=== PATIENT | male | born 1970 | race Caucasian/White ===

== ENCOUNTER 2017-01-05 05:07 | Day surgery (SDC) | payer BC ==
[2016-12-24 12:50] VITALS: BMI 29.0
--- NOTE | 2017-01-05 09:36 | HP ---
Satellite [facility] - Chief Complaint Chief Complaint: left elbow pain/numbess - Past Medical History Allergies/Adverse Reactions: Allergies Allergy/AdvReac Type Severity Reaction Status Date / Time No Known Allergies Allergy Verified 08/17/13 09:29 - Current Medications Current Medications: Home Medications Medication Instructions Recorded Biotin [Hard Nails] 2,500 mcg PO DAILY 12/24/16 Cholecalciferol (Vitamin D3) 1,000 unit PO DAILY 12/24/16 [Vitamin D3 -] Cyclobenzaprine HCl [Flexeril -] 5 mg PO HS 12/24/16 Esomeprazole Magnesium [Nexium 40 mg PO DAILY PRN 12/24/16 24Hr] Trazodone HCl [Desyrel -] 75 mg PO HS 12/24/16 Hydrocodone/Acetaminophen [Evangeline 1 each PO Q6H PRN #40 tablet MDD 4 01/05/17 5-325 Tablet] Satellite Physical Exam - Physical Examination General Appearance: Well Nourished, Well Developed, Alert & Oriented x3 ENT: Clear Lung: Normal air movement Heart: Regular rate & rhythm Extremities: Other (left elbow- + ttp, + tinels emg + ulna neuropathy) Neurological: Intact, Alert, Oriented Satellite Impression/Plan - Impression/Plan Impression: 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
[2017-01-05] MEDS ORDERED: PROPOFOL 20 ML ONE ×2 (10:31→12:21)
[2017-01-05] MEDS ORDERED: MIDAZOLAM HCL 2 MG/2 ML SINGLE DOSE VIAL ONE (10:32)
[2017-01-05] MEDS ORDERED: ceFAZolin SODIUM 1 GM VIAL ONE (11:05)
[2017-01-05] MEDS ORDERED: DEXAMETHASONE SOD PHOSPHATE 4 MG/1 ML VIAL ONE (11:05)
[2017-01-05] MEDS ORDERED: ceFAZolin SODIUM 1 GM VIAL IVPB ONE (11:07)
[2017-01-05] MEDS ORDERED: BUPIVACAINE HCL/PF 0.5% (5MG/ML) 10 ML VIAL IJ ONE (11:16)
--- NOTE | 2017-01-05 12:57 | OP ---
Operative Note - Note: Operative Date: 01/05/17 ([facility]) Pre-Operative Diagnosis: left elbow ulna neuropathy Operation: left revision ulna nerve transposition (submuscular), neurolysis Post-Operative Diagnosis: Same as Pre-op Surgeon: Khai Jaramillo Javascript Developer: Adrian Pike Anesthesiologist/DEPLOYMENT ENGINEER: Yoel Watt Anesthesia: General, Local Estimated Blood Loss (mls): 0 (tourniquet) Operative Report Dictated: Yes
[2017-01-05] MEDS ORDERED: oxyCODONE HCL 5 MG TABLET PO PRN (13:11)
[2017-01-05] MEDS ORDERED: ONDANSETRON 4 MG/2 ML VIAL IVPUSH PRN (13:11)
--- NOTE | 2017-01-05 13:11 | OP ---
Operative Note - Note: Operative Date: 01/05/17 Pre-Operative Diagnosis: left elbow recurrent ulnar nerve neuropathy Operation: left elbow submuscular ulnar nerve transposition, neurolysis, excision of scar tissue Findings: scar tissue Post-Operative Diagnosis: Same as Pre-op Surgeon: Khai Jaramillo Anesthesiologist/MODERN LANGUAGES PROFESSOR: Yoel Watt Anesthesia: General, Local Specimens Removed: scar tissue Estimated Blood Loss (mls): 0 Blood Volume Replaced (mls): 0 Fluid Volume Replaced (mls): 1,100 Operative Report Dictated: Yes
[2017-01-05] MEDS ORDERED: LACTATED RINGERS SOLUTION 1,000 ML IV SCH (13:15)
[2017-01-05] MEDS ORDERED: oxyCODONE HCL 5 MG TABLET ONE ×2 (14:01→15:02)
--- NOTE | 2017-01-05 14:21 | OP ---
DATE OF OPERATION: 01/05/2017 PREOPERATIVE DIAGNOSIS: Status post left elbow subcutaneous ulnar nerve transposition with recurrent ulnar neuropathy and formation of scar tissue. POSTOPERATIVE DIAGNOSIS: Status post left elbow subcutaneous ulnar nerve transposition with recurrent ulnar neuropathy and formation of scar tissue. PROCEDURE: Left elbow submuscular ulnar nerve transposition and neurolysis/excision of scar tissue. SURGEON: Cm Andrews MD PHYSIOTHERAPIST'S ASSISTANT: None. ANESTHESIOLOGIST: Yoel Watt MD ANESTHESIA: LMA anesthesia with local injection of 20 mL 0.5% Marcaine, 1% lidocaine mixed. DRAINS: None. COMPLICATIONS: None. SPECIMENS: Scar tissue, left elbow. BLOOD LOSS: None. BLOOD GIVEN: None. FLUID REPLACEMENT: 1000 mL. INDICATIONS: This patient is a 46-year-old male who had a left elbow subcutaneous ulnar nerve transposition and has recurrent ulnar neuropathy. After extensive preoperative discussions about the potential risks, complications, alternatives, benefits of surgical versus nonsurgical treatments, the patient had elected to undergo surgery. The patient understands that he may not get complete relief or even any relief of his symptoms, including a continuation of the numbness in the ulnar nerve distribution. He also understands that the numbness in the posterior aspect of the left proximal posterior forearm is not the ulnar nerve distribution and I do not has anything to do with his previous ulnar nerve transposition. He understands that his symptoms could get worse at a rate of this surgery. Preoperatively, he had significant ulnar abduction weakness, and the ulnar-innervated interossei were quite weak at 3+/5. Patient also had significantly decreased subjective sensation in the ulnar nerve distribution of the left hand and distal forearm. He understands this and has elected to go forward with surgery. DESCRIPTION OF PROCEDURE: The patient was brought to the operating room, peripheral IV placed, IV sedation given. LMA anesthesia was induced. IV Ancef 2 g was given. Left upper extremity was prepped and draped in sterile fashion, elevated and exsanguinated with an Esmarch bandage and tourniquet inflated to 250 mmHg. I charan out a curvilinear incision using the previous incision, and 20 mL of 0.5% Marcaine, 1% lidocaine mixture was injected in and around the surgical incision. Next, the incision was made with a No. 15 scalpel blade. Subcutaneous hemostasis was achieved with bipolar cautery. Very careful dissection was then done to the superficial fascial layer. Weitlaner retractors were placed into the wound. The ulnar nerve was identified proximally and very carefully it was released along it course until it was distal to the medial epicondyle going into the 2 heads of the FCU. The ulnar nerve was intact. It was bound down by a lot of scar tissue around the medial aspect of the left elbow right over the medial epicondyle. It was mildly flattened out over the medial epicondyle. I released the fascia between the 2 heads of the FCU, and using my finger was able to feel that the release was complete distally and proximally. I was then able to transpose the ulnar nerve anterior to the rotation of the left elbow. I protected it with Nancy drains. I then used a fresh No. 15 scalpel blade to bring the flexor pronator mass up off the medial epicondyle. I transposed the ulnar nerve to its new bed and overall it looked to be in a good position post transposition. Besides doing the complete neurolysis, I was able to excise some scar tissue adherent to the outer epineurium. The area was copiously irrigated and washed out. I then used 4 FiberWires, and a 2.0-mm drill bit was used to drill 2 holes in the medial epicondyle. I used the FiberWire in an up and down fashion. Two of them were through the 2 drill holes in the medial epicondyle and 2 were for supplemental sutures through the soft tissue/periosteum. It all came down quite nicely. The ulnar nerve was checked. There were no points of compression. I then used FiberWire to do several other supplemental sutures tacking this flexor pronator mass down to the periosteum. Next, I closed 2-0 Vicryl sutures to close the fascial layer that I had opened. I closed the deep dermal layer with 4-0 undyed Vicryl, and final skin reapproximation was done with a running subcuticular 4-0 Biosyn stitch. The area was then washed and dried, covered with Steri-Strips. A total of 20 mL 0.5% Marcaine, 1% lidocaine mixture had been injected in and around the surgical incision. The area was then washed and dried, covered with 4 x 4's, Webril, and a 5-inch Orthoglass posterior splint was applied with the elbow in 90 degrees, including the wrist and the forearm in neutral. Of note, when the patient was completely anesthetized and relaxed after LMA anesthesia was induced, he had a significant 40-degree extension deficit of the left elbow. I could not push him passively beyond this. He seemed to have full flexion, and I was able to push the left hand up to the ipsilateral shoulder. Tourniquet was taken down after a total tourniquet time of 94 minutes. There were no complications during the case. The patient tolerated the procedure quite well and was brought to the regular recovery room in stable condition. CM ANDREWS M.D. [id number]
[2017-01-05 15:14] VITALS: BP 116/72; PULSE 95; TEMP 98
--- NOTE | 2017-01-07 10:02 | PATH ---
Surgical Pathology Report Patient Name: CINTHYA HENDERSON Med. Rec. #: [id number] /Age/Gender: 1970 (Age: 46) / M Account: [id number] Location: [facility] SURGICAL Taken: 01/05/2017 Received: 01/05/2017 Reported: 01/07/2017 Physicians: Khai Jaramillo M.D. Specimen(s) Received SCAR TISSUE LEFT ELBOW Clinical History Lesion of ulnar nerve left elbow Final Diagnosis SOFT TISSUE, LEFT ELBOW, EXCISION: BENIGN FIBROFATTY TISSUE WITH AREAS OF DENSE FIBROSIS SUGGESTIVE OF FIBROTIC SYNOVIUM. NO MALIGNANT FEATURES ARE IDENTIFIED. Electronically Signed Kingston Warner M.D. Gross Description Received in formalin labeled "scar tissue left elbow," are 2 reilly soft tissue fragments measuring 2.0 x 1.4 x 0.3 cm in aggregate. The specimens are submitted in toto in one cassette. /01/05/201701/05/2017
== END 2017-01-05 15:14 | disposition home or self-care (01) ==
LOC: JASU-SURG 05:07
PROVIDERS: ATTEND Orthopaedic Surgery
PROC: 0HBEXZZ Excision of Left Lower Arm Skin, External Approach (ICD-10-PCS; 2017-01-05)
PROC: 01N40ZZ Release Ulnar Nerve, Open Approach (ICD-10-PCS; principal; 2017-01-05 10:00)
DX: G56.22 Lesion of ulnar nerve, left upper limb (principal); L90.5 Scar conditions and fibrosis of skin
CPT/HCPCS: 88304-TC; 94760